=== PATIENT | female | born 1960 | race Caucasian/White ===

== ENCOUNTER → 2016-05-20 | Outpatient (CLI) | payer MEDICARE, MEDICAID ==
[~2016-05-20] MED LIST: ALTACE 2.5MG T2.5 MG PO; ANTIVERT 25MG25 MG PO; CEPHALEXIN500 M1 PO; CLEOCIN HC150 MG/CAP PO; CLEOCIN HCL300 MG PO; COREG12.5 MG PO; COUMADIN 5MG5 MG/TAB PO; DILAUDID 2MG TAB2 MG PO; DOXYCYCLINE 10100 MG PO; EFFEXOR 75M75 MG/TAB PO; GUAIFENESIN W PO; HCTZ 25MG TAB25 MG PO; LOFIBRA54 MG PO; LOPRESSOR 225 MG/TAB PO; NITROSTAT0.4 MG/TAB SL; PREDNISONE20 MG PO; PRIL40 PO; PROAIR HFA0.09 MG/AC IH; ROBITUSSIN DM 105 ML PO; ROBITUSSIN100 MG/5 M PO; TOPROL XL 50MG50 MG PO; ULTRAM 50MG TAB50 MG PO; VITAMIN D31000 I1 PO; VITAMIN D31000 IU PO; ZITHROMAX Z PA250 MG PO; ZOFRAN ODT4 MG PO
[2016-05-20 14:58] LABS: INR 1.6 (0.8-3.0); PROTHROMBIN TIME 18.4 SECONDS (9.7-12.8)
== END ==
LOC: COL.LAB 13:58
PROVIDERS: Dietitian, Registered
DX: Z86.718 Personal history of other venous thrombosis and embolism (principal)

== ENCOUNTER → 2016-06-04 | Outpatient (CLI) | payer MEDICARE, MEDICAID ==
[2016-06-04 14:03] LABS: CALCIUM 9.6 mg/dL (8.4-10.2); CREATININE, serum 0.88 mg/dL (0.52-1.25); POTASSIUM 3.9 mmol/L (3.4-5.0)
== END ==
LOC: COL.LAB 13:16
PROVIDERS: Internal Medicine Interventional Cardiology
DX: I42.8 Other cardiomyopathies (principal)

== ENCOUNTER 2016-06-19 16:07 | Emergency (ER) | payer MEDICARE, MEDICAID ==
[~2016-06-19] VITALS: Ht 167.6 cm; Wt 74.1 kg
[~2016-06-19 16:07] MED LIST changes: -ANTIVERT 25MG25 MG PO; -NITROSTAT0.4 MG/TAB SL
[2016-06-19 16:16] VITALS: TEMP 98.2
[2016-06-19 18:50] LABS: BASO # 0.1 (0.0-0.2); BASO % 0.7 % (0.0-2.0); EOS # 0.3 (0.0-0.7); EOS % 3.5 % (0-4.0); GRAN # 4.8 (1.4-6.5); GRAN % 57.3 % (42.2-75.2); HEMATOCRIT 43.3 % (37.0-47.0); HEMOGLOBIN 13.7 g/dl (12.5-16.0); LYMPH # 2.7 (1.2-3.4); LYMPH % 31.4 % (20.0-51.0); MEAN CELL VOLUME 94 fl (80.0-100.0); MEAN CORPUSCULAR HEMOGLOBIN 30 pg (27.0-31.0); MEAN CORPUSCULAR HGB CONC 32 g/dl (33.0-37.0); MEAN PLATELET VOLUME 9.6 fl (7.4-10.4); MONO # 0.6 (0.1-0.6); MONO % 6.5 % (1.7-9.3); PLATELET COUNT 242 K/mm3 (130-400); REDCELL DISTRIBUTION WIDTH-CV 14.5 % (11.5-14.5); WHITE BLOOD COUNT 8.5 K/mm3 (4.8-10.8)
[2016-06-19 18:59] LABS: ADJUSTED CALCIUM 9.7 mg/dL (8.4-10.2); ALANINE AMINOTRANSFERASE 42 U/L (9-52); ALBUMIN 4.2 gm/dL (3.5-5.0); ALKALINE PHOSPHATASE 101 U/L (50-136); ANION GAP 11 mmol/L (7-16); BILIRUBIN,TOTAL 0.7 mg/dL (0.0-1.0); BLOOD UREA NITROGEN 14 mg/dL (7-17); C-REACTIVE PROTEIN 0.7 mg/dL (0.0-0.9); CALCIUM 9.9 mg/dL (8.4-10.2); CARBON DIOXIDE 27 mmol/L (22-30); CHLORIDE 105 mmol/L (98-107); CREATININE, serum 0.86 mg/dL (0.52-1.25); GLUCOSE 106 mg/dL (74-106); POTASSIUM 3.7 mmol/L (3.4-5.0); SODIUM 143 mmol/L (137-145); TOTAL PROTEIN 7.8 gm/dL (6.4-8.2)
[2016-06-19 19:01] LABS: INR 2.3 (0.8-3.0); PROTHROMBIN TIME 25.9 SECONDS (9.7-12.8)
[2016-06-19 19:12] LABS: TROPONIN-I < 0.012 ng/mL (0.000-0.034)
[2016-06-19 19:31] LABS: PH 5 (5-8); URINE APPEARANCE Hazy; URINE BACTERIA None Seen /hpf; URINE BILIRUBIN Negative (NEGATIVE); URINE BLOOD Negative (NEGATIVE); URINE COLOR Yellow; URINE GLUCOSE Negative (NEGATIVE); URINE KETONE Negative (NEGATIVE); URINE UROBILINOGEN Negative (NEGATIVE)
[2016-06-19 19:37] LABS: INFLUENZA B NEGATIVE
[2016-06-19] MEDS ORDERED: ZITHROMAX Z PA250 MG PO (19:56)
[2016-06-19] MEDS ORDERED: PROAIR HFA0.09 MG/AC IH (19:56)
[2016-06-19 20:08] VITALS: BP 135/90; PULSE 93
== END 2016-06-19 20:10 | disposition home or self-care (01) ==
LOC: COL.ER 16:07
PROVIDERS: Physician Assistant
DX: J20.9 Acute bronchitis, unspecified (principal); R53.81 Other malaise; I25.2 Old myocardial infarction; Z79.01 Long term (current) use of anticoagulants; Z86.718 Personal history of other venous thrombosis and embolism; Z51.81 Encounter for therapeutic drug level monitoring
CPT/HCPCS: J7030

== ENCOUNTER → 2016-06-19 | Outpatient (CLI) | payer MEDICARE, MEDICAID ==
[2016-06-19 17:03] LABS: CALCIUM 9.9 mg/dL (8.4-10.2); CREATININE, serum 0.85 mg/dL (0.52-1.25); POTASSIUM 3.6 mmol/L (3.4-5.0)
== END ==
LOC: COL.LAB 14:56
PROVIDERS: Dietitian, Registered
DX: I42.8 Other cardiomyopathies (principal)

== ENCOUNTER → 2016-10-27 | Outpatient (CLI) | payer MEDICARE, MEDICAID ==
[~2016-10-27] MED LIST changes: +ANTIVERT 25MG25 MG PO; +NITROSTAT0.4 MG/TAB SL
[2016-10-27 12:17] LABS: PROTHROMBIN TIME 33.8 SECONDS (9.7-12.8)
== END ==
LOC: COL.LAB 10:57
PROVIDERS: Dietitian, Registered
DX: I82.409 Acute embolism and thrombosis of unspecified deep veins of unspecified lower extremity (principal)

== ENCOUNTER → 2016-12-23 | Outpatient (CLI) | payer MEDICARE, MEDICAID ==
[2016-12-23 13:33] LABS: INR 3.3 (0.8-3.0); PROTHROMBIN TIME 38.7 SECONDS (9.7-12.8)
== END ==
LOC: COL.LAB 12:35
PROVIDERS: Dietitian, Registered
DX: I82.409 Acute embolism and thrombosis of unspecified deep veins of unspecified lower extremity (principal)

== ENCOUNTER 2017-01-08 12:12 | Day surgery (SDC) | payer MEDICARE, MEDICAID ==
[~2017-01-08] VITALS: Ht 167.7 cm; Wt 78.6 kg
[2017-01-08] VITALS (9 sets, daily range): BP systolic 116–135; BP diastolic 70–97; PULSE 70–92; TEMP 98.1–99.1
[~2017-01-08 12:12] MED LIST changes: -ANTIVERT 25MG25 MG PO; -NITROSTAT0.4 MG/TAB SL
[2017-01-08] MEDS ORDERED: ANTIVERT 25MG25 MG PO (12:57)
[2017-01-08] MEDS ORDERED: NITROSTAT0.4 MG/TAB SL (12:58)
[2017-01-08 13:17] LABS: HEMATOCRIT 46.5 % (37.0-47.0); HEMOGLOBIN 15.3 g/dl (12.5-16.0); MEAN CELL VOLUME 90 fl (80.0-100.0); MEAN CORPUSCULAR HEMOGLOBIN 30 pg (27.0-31.0); MEAN CORPUSCULAR HGB CONC 33 g/dl (33.0-37.0); MEAN PLATELET VOLUME 9.4 fl (7.4-10.4); PLATELET COUNT 253 K/mm3 (130-400); RED BLOOD COUNT 5.18 M/mm3 (4.10-5.30); WHITE BLOOD COUNT 15.2 K/mm3 (4.8-10.8)
[2017-01-08 13:21] LABS: INR 1.1 (0.8-3.0); PROTHROMBIN TIME 12.1 SECONDS (9.7-12.8)
[2017-01-08 13:31] LABS: CALCIUM 10.3 mg/dL (8.4-10.2); CREATININE, serum 0.76 mg/dL (0.52-1.25); POTASSIUM 4.1 mmol/L (3.4-5.0)
== END 2017-01-08 18:11 | disposition home or self-care (01) ==
LOC: COL.CAR 12:12
PROVIDERS: Internal Medicine Interventional Cardiology
DX: R07.89 Other chest pain (principal); I25.10 Atherosclerotic heart disease of native coronary artery without angina pectoris; I50.20 Unspecified systolic (congestive) heart failure; I83.813 Varicose veins of bilateral lower extremities with pain; I83.93 Asymptomatic varicose veins of bilateral lower extremities; Z95.810 Presence of automatic (implantable) cardiac defibrillator; I25.2 Old myocardial infarction; Z87.891 Personal history of nicotine dependence; Z95.0 Presence of cardiac pacemaker
CPT/HCPCS: C1760; C1894; J1200; J2250; J3010; J7512; Q9967

== ENCOUNTER 2017-01-09 01:14 | Emergency (ER) | payer MEDICARE, MEDICAID ==
[~2017-01-09] VITALS: Ht 167.6 cm; Wt 81.8 kg
[2017-01-09 01:17] VITALS: TEMP 98.2
[2017-01-09 03:10] VITALS: BP 100/68; PULSE 71
== END 2017-01-09 03:13 | disposition home or self-care (01) ==
LOC: COL.ER 01:14
DX: T82.848A Pain due to vascular prosthetic devices, implants and grafts, initial encounter (principal); Z86.718 Personal history of other venous thrombosis and embolism; Z79.01 Long term (current) use of anticoagulants
CPT/HCPCS: J1170

== ENCOUNTER → 2017-01-09 | Outpatient (CLI) | payer MEDICARE, MEDICAID ==
[~2017-01-09] MED LIST changes: +ANTIVERT 25MG25 MG PO; +NITROSTAT0.4 MG/TAB SL
== END ==
LOC: COL.RAD 09:49
DX: R10.31 Right lower quadrant pain (principal); Z95.828 Presence of other vascular implants and grafts

== ENCOUNTER → 2017-01-28 | Outpatient (CLI) | payer MEDICARE, MEDICAID ==
[2017-01-28 13:33] LABS: INR 2.7 (0.8-3.0); PROTHROMBIN TIME 30.6 SECONDS (9.7-12.8)
== END ==
LOC: COL.LAB 12:22
PROVIDERS: Dietitian, Registered
DX: I82.409 Acute embolism and thrombosis of unspecified deep veins of unspecified lower extremity (principal)

== ENCOUNTER → 2017-03-26 | Outpatient (CLI) | payer MEDICARE, MEDICAID ==
[2017-03-26 15:06] LABS: PROTHROMBIN TIME 34.2 SECONDS (9.7-12.8)
== END ==
LOC: COL.LAB 13:52
PROVIDERS: Dietitian, Registered
DX: Z79.01 Long term (current) use of anticoagulants (principal); Z86.718 Personal history of other venous thrombosis and embolism

== ENCOUNTER → 2017-04-26 | Outpatient (CLI) | payer MEDICARE, MEDICAID ==
[2017-04-26 15:20] LABS: INR 3.1 (0.8-3.0); PROTHROMBIN TIME 36.9 SECONDS (9.7-12.8)
== END ==
LOC: COL.LAB 14:41
PROVIDERS: Dietitian, Registered
DX: Z79.01 Long term (current) use of anticoagulants (principal); Z86.718 Personal history of other venous thrombosis and embolism

== ENCOUNTER 2017-05-20 18:00 | Emergency (ER) | payer MEDICARE, MEDICAID ==
[~2017-05-20] VITALS: Ht 167.6 cm; Wt 77.3 kg
[2017-05-20 18:03] VITALS: BP 118/88; TEMP 99.2
[2017-05-20 19:22] LABS: INFLUENZA A NEGATIVE; INFLUENZA B NEGATIVE
[2017-05-20] MEDS ORDERED: PREDNISONE20 MG PO (19:34)
[2017-05-20 19:45] VITALS: PULSE 92
== END 2017-05-20 19:46 | disposition home or self-care (01) ==
LOC: COL.ER 18:00
PROVIDERS: Nurse Practitioner
DX: J20.9 Acute bronchitis, unspecified (principal); I10 Essential (primary) hypertension; I25.2 Old myocardial infarction; Z87.891 Personal history of nicotine dependence; Z95.0 Presence of cardiac pacemaker; Z79.01 Long term (current) use of anticoagulants
CPT/HCPCS: J7512

== ENCOUNTER 2017-05-30 12:21 | Inpatient (IN) | payer MEDICARE, MEDICAID ==
[~2017-05-30] VITALS: Ht 167.6 cm; Wt 83.4 kg
[2017-05-30 13:03] LABS: BASO # 0.1 (0.0-0.2); BASO % 0.5 % (0.0-2.0); EOS # 0.3 (0.0-0.7); EOS % 2.2 % (0-4.0); GRAN # 9.2 (1.4-6.5); HEMATOCRIT 42.5 % (37.0-47.0); HEMOGLOBIN 14.1 g/dl (12.5-16.0); LYMPH % 8.7 % (20.0-51.0); MEAN CELL VOLUME 91 fl (80.0-100.0); MEAN CORPUSCULAR HEMOGLOBIN 30 pg (27.0-31.0); MEAN CORPUSCULAR HGB CONC 33 g/dl (33.0-37.0); MEAN PLATELET VOLUME 9.9 fl (7.4-10.4); MONO % 8.7 % (1.7-9.3); PLATELET COUNT 206 K/mm3 (130-400); RED BLOOD COUNT 4.67 M/mm3 (4.10-5.30); REDCELL DISTRIBUTION WIDTH-CV 14.6 % (11.5-14.5)
[2017-05-30 13:09] LABS: PROTHROMBIN TIME 35.7 SECONDS (9.7-12.8)
[2017-05-30 13:11] LABS: PARTIAL THROMBOPLASTIN TIME 40.8 SECONDS (26.0-37.0)
[2017-05-30 13:49] LABS: ALANINE AMINOTRANSFERASE 40 U/L (9-52); ALBUMIN 3.6 gm/dL (3.5-5.0); ALKALINE PHOSPHATASE 83 U/L (50-136); ANION GAP 10 mmol/L (7-16); AST,SGOT 45 U/L (15-37); BILIRUBIN,TOTAL 0.5 mg/dL (0.0-1.0); BLOOD UREA NITROGEN 12 mg/dL (7-17); CALCIUM 8.5 mg/dL (8.4-10.2); CARBON DIOXIDE 23 mmol/L (22-30); CHLORIDE 103 mmol/L (98-107); CREATININE, serum 0.81 mg/dL (0.52-1.25); GLUCOSE 111 mg/dL (74-106); POTASSIUM 3.6 mmol/L (3.4-5.0); SODIUM 136 mmol/L (137-145); TOTAL PROTEIN 6.5 gm/dL (6.4-8.2)
[2017-05-30 14:01] LABS: TROPONIN-I < 0.012 ng/mL (0.000-0.034)
[2017-05-30] MEDS ORDERED: ALTACE 2.5MG T2.5 MG PO (15:42)
[2017-05-30] MEDS ORDERED: COREG 6.256.25 MG/TA PO (15:42)
[2017-05-30] MEDS ORDERED: HCTZ 25MG TAB25 MG PO (15:43)
[2017-05-30] MEDS ORDERED: LOFIBRA54 MG PO (15:43)
[2017-05-30] MEDS ORDERED: PRIL40 PO (15:43)
[2017-05-30] MEDS ORDERED: EFFEXOR 75M75 MG/TAB PO (15:44)
[2017-05-30] MEDS ORDERED: COUMADIN 5MG5 MG/TAB PO (15:44)
[2017-05-30] MEDS ORDERED: PROAIR HFA0.09 MG/AC IH (15:46)
[2017-05-30] MEDS ORDERED: NITROSTAT0.4 MG/TAB SL (15:46)
[2017-05-30 16:43] LABS: COLLECTION METHOD CLEAN CATCH
[2017-05-30 16:49] LABS: PH 7 (5-8); SQUAMOUS EPITHELIAL None Seen /hpf; URINE APPEARANCE Clear; URINE BACTERIA None Seen /hpf; URINE BILIRUBIN Negative (NEGATIVE); URINE BLOOD Negative (NEGATIVE); URINE COLOR Yellow; URINE GLUCOSE Negative (NEGATIVE); URINE KETONE Negative (NEGATIVE); URINE LEUKOCYTE ESTERASE Trace (NEGATIVE); URINE NITRATE Negative (NEGATIVE); URINE PROTEIN(semi-quant) Negative (NEGATIVE); URINE RBC 0-2 /hpf; URINE UROBILINOGEN Negative (NEGATIVE)
[2017-05-30 17:30] VITALS: BP 111/61; PULSE 117; TEMP 101.7
[2017-05-30 17:33] VITALS: BP 111/61; PULSE 117; TEMP 101.7
[2017-05-30 19:45] VITALS: BP 107/52; PULSE 124; TEMP 102
[2017-05-31] VITALS (7 sets, daily range): BP systolic 111–128; BP diastolic 52–71; PULSE 95–119; TEMP 98.7–102.5
[2017-05-31 06:44] LABS: BASO % 0.3 % (0.0-2.0); GRAN # 7.7 (1.4-6.5); GRAN % 75.7 % (42.2-75.2); HEMATOCRIT 37.6 % (37.0-47.0); HEMOGLOBIN 12.3 g/dl (12.5-16.0); LYMPH # 1.3 (1.2-3.4); LYMPH % 12.5 % (20.0-51.0); MEAN CELL VOLUME 91 fl (80.0-100.0); MEAN CORPUSCULAR HEMOGLOBIN 30 pg (27.0-31.0); MEAN CORPUSCULAR HGB CONC 33 g/dl (33.0-37.0); MEAN PLATELET VOLUME 9.6 fl (7.4-10.4); MONO # 1.1 (0.1-0.6); PLATELET COUNT 157 K/mm3 (130-400); RED BLOOD COUNT 4.13 M/mm3 (4.10-5.30); REDCELL DISTRIBUTION WIDTH-CV 14.9 % (11.5-14.5)
[2017-05-31 06:55] LABS: ALBUMIN 3.3 gm/dL (3.5-5.0); BILIRUBIN,TOTAL 0.8 mg/dL (0.0-1.0); CALCIUM 8.1 mg/dL (8.4-10.2); CREATININE, serum 0.76 mg/dL (0.52-1.25); POTASSIUM 3.1 mmol/L (3.4-5.0); TOTAL PROTEIN 6.3 gm/dL (6.4-8.2)
[2017-05-31 08:44] LABS: INR 1.5 (0.8-3.0)
[2017-05-31 09:54] LABS: CHOLESTEROL RISK RATIO 4.6
[2017-06-01 00:22] LABS: MEAN CELL VOLUME 93 fl (80.0-100.0); MEAN CORPUSCULAR HGB CONC 32 g/dl (33.0-37.0); MEAN PLATELET VOLUME 9.4 fl (7.4-10.4); PLATELET COUNT 148 K/mm3 (130-400); RED BLOOD COUNT 3.84 M/mm3 (4.10-5.30); REDCELL DISTRIBUTION WIDTH-CV 15.1 % (11.5-14.5)
[2017-06-01 00:23] LABS: HEMATOCRIT 35.8 % (37.0-47.0); HEMOGLOBIN 11.5 g/dl (12.5-16.0); MEAN CORPUSCULAR HEMOGLOBIN 30 pg (27.0-31.0)
[2017-06-01 03:38] VITALS: BP 125/63; PULSE 112; TEMP 100.9
[2017-06-01 06:49] LABS: BASO % 0.3 % (0.0-2.0); EOS % 0.3 % (0-4.0); GRAN # 4.4 (1.4-6.5); GRAN % 67.3 % (42.2-75.2); LYMPH # 1.4 (1.2-3.4); LYMPH % 22.2 % (20.0-51.0); MEAN CELL VOLUME 92 fl (80.0-100.0); MEAN CORPUSCULAR HGB CONC 32 g/dl (33.0-37.0); MEAN PLATELET VOLUME 9.8 fl (7.4-10.4); MONO # 0.6 (0.1-0.6); MONO % 9.4 % (1.7-9.3); PLATELET COUNT 131 K/mm3 (130-400); RED BLOOD COUNT 3.71 M/mm3 (4.10-5.30)
[2017-06-01 06:50] LABS: HEMATOCRIT 34.1 % (37.0-47.0); MEAN CORPUSCULAR HEMOGLOBIN 30 pg (27.0-31.0)
[2017-06-01 07:02] LABS: INR 1.4 (0.8-3.0); PROTHROMBIN TIME 15.9 SECONDS (9.7-12.8)
[2017-06-01 07:04] LABS: BILIRUBIN,TOTAL 0.4 mg/dL (0.0-1.0); CALCIUM 8.2 mg/dL (8.4-10.2); CREATININE, serum 0.71 mg/dL (0.52-1.25); POTASSIUM 3.3 mmol/L (3.4-5.0); TOTAL PROTEIN 5.9 gm/dL (6.4-8.2)
[2017-06-01 07:34] VITALS: BP 124/68; PULSE 102; TEMP 98.9
[2017-06-01 08:05] LABS: MEAN CELL VOLUME 92 fl (80.0-100.0); MEAN CORPUSCULAR HGB CONC 32 g/dl (33.0-37.0); MEAN PLATELET VOLUME 9.4 fl (7.4-10.4); PLATELET COUNT 128 K/mm3 (130-400); RED BLOOD COUNT 3.79 M/mm3 (4.10-5.30); REDCELL DISTRIBUTION WIDTH-CV 15.1 % (11.5-14.5)
[2017-06-01 08:07] LABS: HEMATOCRIT 34.9 % (37.0-47.0); HEMOGLOBIN 11.1 g/dl (12.5-16.0); MEAN CORPUSCULAR HEMOGLOBIN 29 pg (27.0-31.0)
[2017-06-01 11:11] VITALS: BP 117/64; PULSE 95; TEMP 98.2
[2017-06-01 16:07] LABS: MEAN CELL VOLUME 91 fl (80.0-100.0); MEAN CORPUSCULAR HGB CONC 33 g/dl (33.0-37.0); MEAN PLATELET VOLUME 9.6 fl (7.4-10.4); PLATELET COUNT 130 K/mm3 (130-400); RED BLOOD COUNT 3.87 M/mm3 (4.10-5.30)
[2017-06-01 16:09] LABS: HEMATOCRIT 35.2 % (37.0-47.0); HEMOGLOBIN 11.6 g/dl (12.5-16.0); MEAN CORPUSCULAR HEMOGLOBIN 30 pg (27.0-31.0)
[2017-06-01 16:27] VITALS: BP 123/74; PULSE 100; TEMP 98.6
[2017-06-01 20:10] VITALS: BP 131/70; PULSE 100; TEMP 99
[2017-06-02] VITALS: BP 138/73; PULSE 96; TEMP 98.6
[2017-06-02 00:25] LABS: MEAN CELL VOLUME 93 fl (80.0-100.0); MEAN CORPUSCULAR HGB CONC 32 g/dl (33.0-37.0); MEAN PLATELET VOLUME 9.8 fl (7.4-10.4); PLATELET COUNT 133 K/mm3 (130-400); RED BLOOD COUNT 3.76 M/mm3 (4.10-5.30)
[2017-06-02 00:26] LABS: HEMOGLOBIN 11.3 g/dl (12.5-16.0); MEAN CORPUSCULAR HEMOGLOBIN 30 pg (27.0-31.0)
[2017-06-02 03:07] VITALS: BP 122/70; PULSE 88; TEMP 98.4
[2017-06-02 06:43] LABS: BASO % 0.2 % (0.0-2.0); EOS # 0.1 (0.0-0.7); EOS % 1.8 % (0-4.0); GRAN # 3.4 (1.4-6.5); GRAN % 62.6 % (42.2-75.2); LYMPH # 1.5 (1.2-3.4); LYMPH % 27.7 % (20.0-51.0); MEAN CELL VOLUME 93 fl (80.0-100.0); MEAN CORPUSCULAR HGB CONC 32 g/dl (33.0-37.0); MEAN PLATELET VOLUME 9.8 fl (7.4-10.4); MONO # 0.4 (0.1-0.6); MONO % 7.3 % (1.7-9.3); PLATELET COUNT 134 K/mm3 (130-400); RED BLOOD COUNT 3.76 M/mm3 (4.10-5.30); REDCELL DISTRIBUTION WIDTH-CV 15.1 % (11.5-14.5)
[2017-06-02 06:52] LABS: CALCIUM 8.5 mg/dL (8.4-10.2); CREATININE, serum 0.62 mg/dL (0.52-1.25); POTASSIUM 3.5 mmol/L (3.4-5.0)
[2017-06-02 06:58] LABS: HEMATOCRIT 34.9 % (37.0-47.0); HEMOGLOBIN 11.2 g/dl (12.5-16.0); MEAN CORPUSCULAR HEMOGLOBIN 30 pg (27.0-31.0)
[2017-06-02 07:29] VITALS: BP 120/66; PULSE 89; TEMP 98.4
[2017-06-02 14:37] LABS: INR 1.1 (0.8-3.0); PROTHROMBIN TIME 12.7 SECONDS (9.7-12.8)
== END 2017-06-02 14:20 | disposition home or self-care (01) | DRG 872 ==
LOC: COL.ER 12:21 → MEDICAL 15:56
PROVIDERS: Emergency Medicine; Family Medicine; Internal Medicine; Nurse Practitioner Family; Surgery
DX: A41.9 Sepsis, unspecified organism (principal); K56.600 Partial intestinal obstruction, unspecified as to cause; K92.1 Melena; J10.1 Influenza due to other identified influenza virus with other respiratory manifestations; I10 Essential (primary) hypertension; I25.10 Atherosclerotic heart disease of native coronary artery without angina pectoris; Z95.810 Presence of automatic (implantable) cardiac defibrillator; Z86.718 Personal history of other venous thrombosis and embolism; Z79.01 Long term (current) use of anticoagulants; Z95.5 Presence of coronary angioplasty implant and graft
CPT/HCPCS: 99223-AI; 99232-AI; 99233-AI; 99239; J1956; J3430; J3475; J3480; J7030; J7060; Q9967

== ENCOUNTER → 2017-06-14 | Outpatient (CLI) | payer MEDICARE, MEDICAID ==
[~2017-06-14] MED LIST changes: +COREG 6.256.25 MG/TA PO
[2017-06-14 13:27] LABS: INR 1.5 (0.8-3.0); PROTHROMBIN TIME 17.9 SECONDS (9.7-12.8)
== END ==
LOC: COL.LAB 12:17
PROVIDERS: Surgery
DX: Z79.01 Long term (current) use of anticoagulants (principal)

== ENCOUNTER 2017-06-23 15:28 | Inpatient (IN) | payer MEDICARE, MEDICAID ==
[~2017-06-23] VITALS: Ht 167.6 cm; Wt 79.8 kg
[2017-06-30] VITALS (12 sets, daily range): BP systolic 104–136; BP diastolic 60–82; PULSE 68–101; TEMP 98.5–99.6
[2017-06-30 06:12] LABS: BASO # 0.1 (0.0-0.2); EOS # 0.3 (0.0-0.7); EOS % 3.4 % (0-4.0); GRAN # 5.2 (1.4-6.5); GRAN % 59.1 % (42.2-75.2); HEMATOCRIT 43.9 % (37.0-47.0); HEMOGLOBIN 14.6 g/dl (12.5-16.0); LYMPH # 2.5 (1.2-3.4); LYMPH % 28.6 % (20.0-51.0); MEAN CELL VOLUME 89 fl (80.0-100.0); MEAN CORPUSCULAR HEMOGLOBIN 30 pg (27.0-31.0); MEAN CORPUSCULAR HGB CONC 33 g/dl (33.0-37.0); MEAN PLATELET VOLUME 9.4 fl (7.4-10.4); MONO # 0.7 (0.1-0.6); MONO % 7.3 % (1.7-9.3); PLATELET COUNT 221 K/mm3 (130-400); RED BLOOD COUNT 4.93 M/mm3 (4.10-5.30); REDCELL DISTRIBUTION WIDTH-CV 14.2 % (11.5-14.5)
[2017-06-30 06:17] LABS: INR 1.2 (0.8-3.0); PROTHROMBIN TIME 13.9 SECONDS (9.7-12.8)
[2017-06-30 06:24] LABS: CALCIUM 9.7 mg/dL (8.4-10.2); CREATININE, serum 0.84 mg/dL (0.52-1.25); POTASSIUM 3.2 mmol/L (3.4-5.0)
[2017-06-30] MEDS ORDERED: ANTIVERT PO (06:52)
[2017-06-30] MEDS ORDERED: BONINE25 MG PO (11:56)
[2017-07-01 01:38] VITALS: BP 115/58; PULSE 64; TEMP 99.4
[2017-07-01 05:00] VITALS: BP 113/54; PULSE 89; TEMP 99.4
[2017-07-01 07:18] LABS: CALCIUM 8.5 mg/dL (8.4-10.2); CREATININE, serum 0.7 mg/dL (0.52-1.25); POTASSIUM 3.3 mmol/L (3.4-5.0)
[2017-07-01 07:24] LABS: HEMATOCRIT 36.9 % (37.0-47.0); HEMOGLOBIN 11.8 g/dl (12.5-16.0)
[2017-07-01 09:00] VITALS: BP 116/62; PULSE 88; TEMP 98.2
[2017-07-01 13:08] VITALS: BP 100/55; PULSE 85; TEMP 98.5
[2017-07-01 17:27] VITALS: BP 107/58; PULSE 93; TEMP 99.4
[2017-07-01 20:17] VITALS: BP 113/81; PULSE 112; TEMP 98.9
[2017-07-02 00:32] VITALS: BP 116/61; PULSE 111; TEMP 98.2
[2017-07-02 05:09] VITALS: BP 108/57; PULSE 99; TEMP 99.2
[2017-07-02 09:28] VITALS: BP 116/54; PULSE 105; TEMP 99.8
[2017-07-02 13:40] VITALS: BP 104/60; PULSE 106; TEMP 98.9
[2017-07-02 17:18] VITALS: BP 106/59; PULSE 104; TEMP 100.3
[2017-07-02 21:28] VITALS: BP 113/74; PULSE 105; TEMP 100.2
[2017-07-03 01:37] VITALS: BP 97/66; PULSE 95; TEMP 101.1
[2017-07-03 05:17] VITALS: BP 118/64; PULSE 90; TEMP 98.2
[2017-07-03 09:52] VITALS: BP 102/63; PULSE 81; TEMP 98.4
[2017-07-03 12:23] LABS: BASO % 0.3 % (0.0-2.0); EOS # 0.3 (0.0-0.7); EOS % 2.9 % (0-4.0); GRAN # 7.9 (1.4-6.5); GRAN % 80.9 % (42.2-75.2); HEMATOCRIT 37.1 % (37.0-47.0); LYMPH % 10.3 % (20.0-51.0); MEAN CELL VOLUME 93 fl (80.0-100.0); MEAN CORPUSCULAR HEMOGLOBIN 29 pg (27.0-31.0); MEAN CORPUSCULAR HGB CONC 32 g/dl (33.0-37.0); MEAN PLATELET VOLUME 9.5 fl (7.4-10.4); MONO # 0.5 (0.1-0.6); PLATELET COUNT 178 K/mm3 (130-400); RED BLOOD COUNT 3.98 M/mm3 (4.10-5.30); REDCELL DISTRIBUTION WIDTH-CV 14.4 % (11.5-14.5)
[2017-07-03 12:35] LABS: HEMOGLOBIN 11.7 g/dl (12.5-16.0)
[2017-07-03 12:44] LABS: BILIRUBIN,TOTAL 1.1 mg/dL (0.0-1.0); CALCIUM 8.5 mg/dL (8.4-10.2); CREATININE, serum 0.7 mg/dL (0.52-1.25); POTASSIUM 3.5 mmol/L (3.4-5.0)
[2017-07-03 14:24] VITALS: BP 100/59; PULSE 82; TEMP 98.1
[2017-07-03 17:31] VITALS: BP 107/67; PULSE 80; TEMP 98.2
[2017-07-03 20:59] VITALS: BP 96/47; PULSE 78; TEMP 98.7
[2017-07-04 00:36] VITALS: BP 109/61; PULSE 80; TEMP 98.3
[2017-07-04 05:16] VITALS: BP 103/57; PULSE 78; TEMP 98
[2017-07-04 07:44] LABS: BASO % 0.3 % (0.0-2.0); EOS # 0.5 (0.0-0.7); EOS % 6.6 % (0-4.0); GRAN % 64.3 % (42.2-75.2); LYMPH # 1.7 (1.2-3.4); LYMPH % 21.4 % (20.0-51.0); MEAN CELL VOLUME 92 fl (80.0-100.0); MEAN CORPUSCULAR HGB CONC 32 g/dl (33.0-37.0); MONO # 0.5 (0.1-0.6); MONO % 6.4 % (1.7-9.3); PLATELET COUNT 176 K/mm3 (130-400); RED BLOOD COUNT 3.57 M/mm3 (4.10-5.30)
[2017-07-04 07:48] LABS: HEMOGLOBIN 10.6 g/dl (12.5-16.0); MEAN CORPUSCULAR HEMOGLOBIN 30 pg (27.0-31.0)
[2017-07-04 08:09] LABS: ALBUMIN 2.7 gm/dL (3.5-5.0); BILIRUBIN,TOTAL 0.6 mg/dL (0.0-1.0); CALCIUM 8.1 mg/dL (8.4-10.2); CREATININE, serum 0.66 mg/dL (0.52-1.25); TOTAL PROTEIN 5.5 gm/dL (6.4-8.2)
[2017-07-04 08:14] LABS: POTASSIUM 2.7 mmol/L (3.4-5.0)
[2017-07-04 13:17] VITALS: BP 112/69; PULSE 76; TEMP 98.8
[2017-07-04 17:00] VITALS: BP 104/65; PULSE 74; TEMP 96.7
[2017-07-04 17:41] LABS: CALCIUM 8.2 mg/dL (8.4-10.2); CREATININE, serum 0.68 mg/dL (0.52-1.25); POTASSIUM 3.5 mmol/L (3.4-5.0)
[2017-07-04 23:13] VITALS: BP 109/63; PULSE 83; TEMP 98
[2017-07-05 05:42] VITALS: BP 121/68; PULSE 82; TEMP 98
[2017-07-05 07:45] LABS: MEAN CELL VOLUME 92 fl (80.0-100.0); MEAN CORPUSCULAR HGB CONC 32 g/dl (33.0-37.0); MEAN PLATELET VOLUME 10.3 fl (7.4-10.4); PLATELET COUNT 221 K/mm3 (130-400); RED BLOOD COUNT 3.93 M/mm3 (4.10-5.30); REDCELL DISTRIBUTION WIDTH-CV 14.2 % (11.5-14.5)
[2017-07-05 07:58] LABS: ALBUMIN 3.1 gm/dL (3.5-5.0); BILIRUBIN,TOTAL 0.5 mg/dL (0.0-1.0); CALCIUM 8.5 mg/dL (8.4-10.2); CREATININE, serum 0.69 mg/dL (0.52-1.25); POTASSIUM 3.3 mmol/L (3.4-5.0)
[2017-07-05 08:16] LABS: HEMATOCRIT 36.3 % (37.0-47.0); HEMOGLOBIN 11.7 g/dl (12.5-16.0); MEAN CORPUSCULAR HEMOGLOBIN 30 pg (27.0-31.0)
[2017-07-05 09:33] VITALS: PULSE 84; TEMP 98.7
[2017-07-05 09:43] LABS: BAND 4 % (0-10); EOSINOPHIL 2 % (0-4); LYMPHOCYTE 19 % (20.0-51.0); NEUTROPHILS 72 % (42.0-75.2)
[2017-07-05 09:44] LABS: PLATELET ESTIMATE NORMAL (NORMAL)
[2017-07-05 13:37] VITALS: BP 117/79; PULSE 91; TEMP 98.4
== END 2017-07-05 15:18 | disposition home or self-care (01) | DRG 330 ==
LOC: SURG 06-30 05:04 → INPTSU 06-30 05:04 → SURG 06-30 07:30
PROVIDERS: Registered Nurse; Surgery
PROC: 0DBA0ZZ Excision of Jejunum, Open Approach (ICD-10-PCS; principal; 2017-06-30 07:30)
PROC: 0DNU0ZZ Release Omentum, Open Approach (ICD-10-PCS; 2017-06-30 07:30)
DX: K59.8 Other specified functional intestinal disorders (principal); K56.7 Ileus, unspecified; I25.10 Atherosclerotic heart disease of native coronary artery without angina pectoris; Z95.5 Presence of coronary angioplasty implant and graft; Z95.0 Presence of cardiac pacemaker; Z87.891 Personal history of nicotine dependence; Z86.711 Personal history of pulmonary embolism; Z79.01 Long term (current) use of anticoagulants; K66.0 Peritoneal adhesions (postprocedural) (postinfection)
CPT/HCPCS: A4314; J0690; J1100; J1650; J1885; J2250; J2405; J2550; J2704; J2710; J3010; J3480; J7060; J7120

== ENCOUNTER → 2017-08-12 | Outpatient (CLI) | payer MEDICARE, MEDICAID ==
[~2017-08-12] MED LIST changes: +ANTIVERT PO; +BONINE25 MG PO
[2017-08-12 10:34] LABS: INR 2.2 (0.8-3.0); PROTHROMBIN TIME 25.5 SECONDS (9.7-12.8)
== END ==
LOC: COL.LAB 09:34
PROVIDERS: Family Medicine
DX: Z51.81 Encounter for therapeutic drug level monitoring (principal); Z86.718 Personal history of other venous thrombosis and embolism

== ENCOUNTER → 2017-09-23 | Outpatient (CLI) | payer MEDICARE, MEDICAID ==
[2017-09-23 12:02] LABS: INR 2.4 (0.8-3.0); PROTHROMBIN TIME 27.3 SECONDS (9.7-12.8)
== END ==
LOC: COL.LAB 11:18
PROVIDERS: Family Medicine
DX: Z79.01 Long term (current) use of anticoagulants (principal)

== ENCOUNTER → 2017-11-23 | Outpatient (CLI) | payer MEDICARE, MEDICAID ==
[2017-11-23 10:15] LABS: INR 2.5 (0.8-3.0); PROTHROMBIN TIME 28.1 SECONDS (9.7-12.8)
== END ==
LOC: COL.LAB 09:37
PROVIDERS: Family Medicine
DX: Z51.81 Encounter for therapeutic drug level monitoring (principal); Z86.718 Personal history of other venous thrombosis and embolism

== ENCOUNTER → 2017-12-31 | Outpatient (CLI) | payer MEDICARE, MEDICAID ==
[2017-12-31 15:09] LABS: INR 1.6 (0.8-3.0); PROTHROMBIN TIME 18.3 SECONDS (9.7-12.8)
== END ==
LOC: COL.LAB 14:33
PROVIDERS: Family Medicine
DX: Z51.81 Encounter for therapeutic drug level monitoring (principal); Z86.718 Personal history of other venous thrombosis and embolism

== ENCOUNTER → 2018-03-28 | Outpatient (CLI) | payer MEDICARE, MEDICAID ==
[2018-03-28 11:32] LABS: HEMATOCRIT 43.1 % (37.0-47.0); HEMOGLOBIN 13.8 g/dl (12.5-16.0); MEAN CELL VOLUME 91 fl (80.0-100.0); MEAN CORPUSCULAR HEMOGLOBIN 29 pg (27.0-31.0); MEAN CORPUSCULAR HGB CONC 32 g/dl (33.0-37.0); MEAN PLATELET VOLUME 9.5 fl (7.4-10.4); PLATELET COUNT 221 K/mm3 (130-400); RED BLOOD COUNT 4.75 M/mm3 (4.10-5.30); REDCELL DISTRIBUTION WIDTH-CV 15.1 % (11.5-14.5)
[2018-03-28 11:37] LABS: INR 1.1 (0.8-3.0); PROTHROMBIN TIME 12.9 SECONDS (9.7-12.8)
[2018-03-28 11:45] LABS: CALCIUM 9.3 mg/dL (8.4-10.2); CREATININE, serum 0.72 mg/dL (0.52-1.25); POTASSIUM 3.9 mmol/L (3.4-5.0)
== END ==
LOC: COL.LAB 10:24
PROVIDERS: Family Medicine
DX: I25.10 Atherosclerotic heart disease of native coronary artery without angina pectoris (principal); E78.5 Hyperlipidemia, unspecified; I11.0 Hypertensive heart disease with heart failure; I50.42 Chronic combined systolic (congestive) and diastolic (congestive) heart failure

== ENCOUNTER → 2018-06-28 | Outpatient (CLI) | payer MEDICARE, MEDICAID ==
[2018-06-28 10:53] LABS: HEMATOCRIT 41.2 % (37.0-47.0); HEMOGLOBIN 13.1 g/dl (12.5-16.0); MEAN CELL VOLUME 92 fl (80.0-100.0); MEAN CORPUSCULAR HEMOGLOBIN 29 pg (27.0-31.0); MEAN CORPUSCULAR HGB CONC 32 g/dl (33.0-37.0); MEAN PLATELET VOLUME 9.6 fl (7.4-10.4); PLATELET COUNT 196 K/mm3 (130-400); RED BLOOD COUNT 4.47 M/mm3 (4.10-5.30); REDCELL DISTRIBUTION WIDTH-CV 14.6 % (11.5-14.5)
[2018-06-28 10:58] LABS: INR 1.9 (0.8-3.0); PROTHROMBIN TIME 22.1 SECONDS (9.7-12.8)
[2018-06-28 11:05] LABS: ALBUMIN 4.1 gm/dL (3.5-5.0); BILIRUBIN,TOTAL 0.3 mg/dL (0.0-1.0); CALCIUM 9.1 mg/dL (8.4-10.2); CHOLESTEROL RISK RATIO 4.9; CREATININE, serum 0.7 mg/dL (0.52-1.25); POTASSIUM 3.8 mmol/L (3.4-5.0); TOTAL PROTEIN 7.3 gm/dL (6.4-8.2)
== END ==
LOC: COL.LAB 10:02
PROVIDERS: Family Medicine
DX: I50.42 Chronic combined systolic (congestive) and diastolic (congestive) heart failure (principal); Z79.01 Long term (current) use of anticoagulants

== ENCOUNTER → 2018-08-10 | Outpatient (CLI) | payer MEDICARE, MEDICAID ==
[2018-08-10 12:31] LABS: INR 3.1 (0.8-3.0); PROTHROMBIN TIME 35.8 SECONDS (9.7-12.8)
[2018-08-10 12:54] LABS: ALBUMIN 3.9 gm/dL (3.5-5.0); BILIRUBIN,TOTAL 0.4 mg/dL (0.0-1.0); CALCIUM 9.2 mg/dL (8.4-10.2); CHOLESTEROL RISK RATIO 5.2; CREATININE, serum 0.69 (0.52-1.25); POTASSIUM 3.8 mmol/L (3.4-5.0)
== END ==
LOC: COL.LAB 10:57
PROVIDERS: Family Medicine
DX: E78.5 Hyperlipidemia, unspecified (principal)

== ENCOUNTER 2018-08-19 13:38 | Emergency (ER) | payer MEDICARE, MEDICAID ==
[~2018-08-19] VITALS: Ht 167.6 cm; Wt 82.6 kg
[2018-08-19 13:42] VITALS: TEMP 98.1
[2018-08-19 15:07] LABS: BASO # 0.1 (0.0-0.2); BASO % 0.8 % (0.0-2.0); EOS # 0.3 (0.0-0.7); EOS % 5.1 % (0-4.0); GRAN # 3.7 (1.4-6.5); GRAN % 59.2 % (42.2-75.2); HEMATOCRIT 41.9 % (37.0-47.0); HEMOGLOBIN 13.3 g/dl (12.5-16.0); LYMPH # 1.8 (1.2-3.4); LYMPH % 28.7 % (20.0-51.0); MEAN CELL VOLUME 91 fl (80.0-100.0); MEAN CORPUSCULAR HEMOGLOBIN 29 pg (27.0-31.0); MEAN CORPUSCULAR HGB CONC 32 g/dl (33.0-37.0); MEAN PLATELET VOLUME 9.1 fl (7.4-10.4); MONO # 0.4 (0.1-0.6); MONO % 5.9 % (1.7-9.3); PLATELET COUNT 179 K/mm3 (130-400); RED BLOOD COUNT 4.62 M/mm3 (4.10-5.30); REDCELL DISTRIBUTION WIDTH-CV 14.7 % (11.5-14.5)
[2018-08-19 15:20] LABS: ALBUMIN 4.2 gm/dL (3.5-5.0); BILIRUBIN,TOTAL 0.5 mg/dL (0.0-1.0); CALCIUM 9.4 mg/dL (8.4-10.2); CREATININE, serum 0.7 (0.52-1.25); POTASSIUM 3.9 mmol/L (3.4-5.0); TOTAL PROTEIN 7.5 gm/dL (6.4-8.2)
[2018-08-19 15:39] LABS: C-REACTIVE PROTEIN 0.6 mg/dL (0.0-0.9)
[2018-08-19] MEDS ORDERED: NORCO 325 MG-51 TAB PO (15:49)
[2018-08-19 15:59] VITALS: BP 125/89; PULSE 70
== END 2018-08-19 16:00 | disposition home or self-care (01) ==
LOC: COL.ER 13:38
PROVIDERS: Physician Assistant
DX: M79.661 Pain in right lower leg (principal); E78.5 Hyperlipidemia, unspecified; I10 Essential (primary) hypertension; K21.9 Gastro-esophageal reflux disease without esophagitis; Z86.711 Personal history of pulmonary embolism; Z86.718 Personal history of other venous thrombosis and embolism; Z95.0 Presence of cardiac pacemaker; Z87.891 Personal history of nicotine dependence; Z79.01 Long term (current) use of anticoagulants

== ENCOUNTER → 2018-08-29 | Outpatient (CLI) | payer MEDICARE, MEDICAID ==
[~2018-08-29] MED LIST changes: +NORCO 325 MG-51 TAB PO
[2018-08-29 11:14] LABS: HEMATOCRIT 41.9 % (37.0-47.0); HEMOGLOBIN 13.5 g/dl (12.5-16.0); MEAN CELL VOLUME 90 fl (80.0-100.0); MEAN CORPUSCULAR HEMOGLOBIN 29 pg (27.0-31.0); MEAN CORPUSCULAR HGB CONC 32 g/dl (33.0-37.0); MEAN PLATELET VOLUME 9.5 fl (7.4-10.4); PLATELET COUNT 196 K/mm3 (130-400); RED BLOOD COUNT 4.64 M/mm3 (4.10-5.30)
[2018-08-29 11:21] LABS: ALBUMIN 4.3 gm/dL (3.5-5.0); BILIRUBIN,TOTAL 0.6 mg/dL (0.0-1.0); CALCIUM 9.4 mg/dL (8.4-10.2); CREATININE, serum 0.74 (0.52-1.25); TOTAL PROTEIN 7.5 gm/dL (6.4-8.2)
[2018-08-29 11:22] LABS: INR 1.5 (0.8-3.0)
== END ==
LOC: COL.LAB 10:52
PROVIDERS: Internal Medicine Interventional Cardiology
DX: M79.604 Pain in right leg (principal)

== ENCOUNTER → 2018-11-15 | Outpatient (CLI) | payer MEDICARE, MEDICAID ==
[2018-11-15 11:20] LABS: CHOLESTEROL RISK RATIO 3.8
[2018-11-15 11:21] LABS: INR 3.5 (0.8-3.0); PROTHROMBIN TIME 42.8 SECONDS (9.7-12.8)
== END ==
LOC: COL.LAB 10:27
PROVIDERS: Family Medicine
DX: E78.5 Hyperlipidemia, unspecified (principal)

== ENCOUNTER 2018-12-12 18:06 | Emergency (ER) | payer MEDICARE, MEDICAID ==
[~2018-12-12] VITALS: Ht 167.6 cm; Wt 79.5 kg
[2018-12-12 18:11] VITALS: BP 153/67; TEMP 97.6
[2018-12-12 18:54] VITALS: PULSE 80
== END 2018-12-12 18:56 | disposition home or self-care (01) ==
LOC: COL.ER 18:06
DX: M79.672 Pain in left foot (principal); I10 Essential (primary) hypertension; K21.9 Gastro-esophageal reflux disease without esophagitis; Z86.718 Personal history of other venous thrombosis and embolism; Z87.891 Personal history of nicotine dependence; Z79.01 Long term (current) use of anticoagulants; Z86.711 Personal history of pulmonary embolism

== ENCOUNTER 2019-01-25 16:49 | Emergency (ER) | payer MEDICARE, MEDICAID ==
[~2019-01-25] VITALS: Ht 167.6 cm; Wt 81.8 kg
[2019-01-25 16:56] VITALS: TEMP 98
[2019-01-25 17:36] LABS: BASO # 0.1 (0.0-0.2); BASO % 0.7 % (0.0-2.0); EOS # 0.2 (0.0-0.7); EOS % 2.3 % (0-4.0); GRAN # 4.8 (1.4-6.5); GRAN % 65.5 % (42.2-75.2); HEMATOCRIT 43.9 % (37.0-47.0); HEMOGLOBIN 13.8 g/dl (12.5-16.0); LYMPH # 1.8 (1.2-3.4); LYMPH % 24.7 % (20.0-51.0); MEAN CELL VOLUME 93 fl (80.0-100.0); MEAN CORPUSCULAR HEMOGLOBIN 29 pg (27.0-31.0); MEAN CORPUSCULAR HGB CONC 31 g/dl (33.0-37.0); MONO # 0.5 (0.1-0.6); MONO % 6.5 % (1.7-9.3); PLATELET COUNT 204 K/mm3 (130-400); RED BLOOD COUNT 4.73 M/mm3 (4.10-5.30); REDCELL DISTRIBUTION WIDTH-CV 14.6 % (11.5-14.5)
[2019-01-25 17:48] LABS: ALANINE AMINOTRANSFERASE 12 U/L (9-52); ALBUMIN 4.7 gm/dL (3.5-5.0); ALKALINE PHOSPHATASE 127 U/L (50-136); ANION GAP 12 mmol/L (7-16); AST,SGOT 40 U/L (15-37); BILIRUBIN,TOTAL 0.6 mg/dL (0.0-1.0); BLOOD UREA NITROGEN 15 mg/dL (7-17); C-REACTIVE PROTEIN < 0.5 mg/dL (0.0-0.9); CARBON DIOXIDE 25 mmol/L (22-30); CHLORIDE 108 mmol/L (98-107); CREATININE, serum 0.67 (0.52-1.25); GLUCOSE 124 mg/dL (74-106); LIPASE 79 U/L (23-300); POTASSIUM 3.8 mmol/L (3.4-5.0); SODIUM 145 mmol/L (137-145)
[2019-01-25 18:13] LABS: COLLECTION METHOD CLEAN CATCH
[2019-01-25 18:20] LABS: PH 8 (5-8); SQUAMOUS EPITHELIAL 0-2 /hpf; URINE APPEARANCE Clear; URINE BACTERIA None Seen /hpf; URINE BILIRUBIN Negative (NEGATIVE); URINE BLOOD Negative (NEGATIVE); URINE COLOR Yellow; URINE GLUCOSE Negative (NEGATIVE); URINE KETONE Negative (NEGATIVE); URINE LEUKOCYTE ESTERASE Negative (NEGATIVE); URINE NITRATE Negative (NEGATIVE); URINE PROTEIN(semi-quant) Negative (NEGATIVE); URINE RBC 0-2 /hpf; URINE UROBILINOGEN >=4.0 mg/dL (NEGATIVE)
[2019-01-25] MEDS ORDERED: ZOFRAN ODT4 MG PO (18:57)
[2019-01-25 19:11] VITALS: BP 119/71; PULSE 74
== END 2019-01-25 19:11 | disposition home or self-care (01) ==
LOC: COL.ER 16:49
PROVIDERS: Family Medicine
DX: R11.2 Nausea with vomiting, unspecified (principal); I25.10 Atherosclerotic heart disease of native coronary artery without angina pectoris; Z79.01 Long term (current) use of anticoagulants
CPT/HCPCS: J1170; J2405; J7030; Q9967

== ENCOUNTER → 2019-03-03 | Outpatient (CLI) | payer MEDICARE, MEDICAID ==
[2019-03-03 13:57] LABS: PROTHROMBIN TIME 24.4 SECONDS (9.7-12.8)
== END ==
LOC: COL.LAB 13:22
PROVIDERS: Family Medicine
DX: I82.409 Acute embolism and thrombosis of unspecified deep veins of unspecified lower extremity (principal)

== ENCOUNTER → 2019-04-13 | Outpatient (CLI) | payer MEDICARE, MEDICAID ==
[2019-04-13 13:10] LABS: INR 2.4 (0.8-3.0); PROTHROMBIN TIME 28.8 SECONDS (9.7-12.8)
== END ==
LOC: COL.LAB 12:28
PROVIDERS: Family Medicine
DX: I82.409 Acute embolism and thrombosis of unspecified deep veins of unspecified lower extremity (principal)

== ENCOUNTER 2019-05-20 18:37 | Emergency (ER) | payer MEDICARE, MEDICAID ==
[~2019-05-20] VITALS: Ht 167.6 cm; Wt 79.1 kg
[2019-05-20 18:50] VITALS: TEMP 99.3
[2019-05-20] MEDS ORDERED: LASIX 20MG TABL20 MG PO (19:13)
[2019-05-20] MEDS ORDERED: MULTI VITAMINS1 TAB PO (19:13)
[2019-05-20 19:35] LABS: BASO # 0.1 (0.0-0.2); BASO % 0.8 % (0.0-2.0); EOS # 0.3 (0.0-0.7); EOS % 3.7 % (0-4.0); GRAN # 4.5 (1.4-6.5); GRAN % 52.5 % (42.2-75.2); HEMOGLOBIN 12.7 g/dl (12.5-16.0); LYMPH % 35.4 % (20.0-51.0); MEAN CELL VOLUME 91 fl (80.0-100.0); MEAN CORPUSCULAR HEMOGLOBIN 29 pg (27.0-31.0); MEAN CORPUSCULAR HGB CONC 32 g/dl (33.0-37.0); MEAN PLATELET VOLUME 9.7 fl (7.4-10.4); MONO # 0.6 (0.1-0.6); MONO % 7.2 % (1.7-9.3); PLATELET COUNT 199 K/mm3 (130-400); RED BLOOD COUNT 4.38 M/mm3 (4.10-5.30); REDCELL DISTRIBUTION WIDTH-CV 15.1 % (11.5-14.5)
[2019-05-20 19:45] LABS: ALANINE AMINOTRANSFERASE 16 U/L (9-52); ALBUMIN 4.5 gm/dL (3.5-5.0); ALKALINE PHOSPHATASE 95 U/L (50-136); ANION GAP 10 mmol/L (7-16); AST,SGOT 23 U/L (15-37); BILIRUBIN,TOTAL 0.3 mg/dL (0.0-1.0); BLOOD UREA NITROGEN 13 mg/dL (7-17); CALCIUM 9.3 mg/dL (8.4-10.2); CARBON DIOXIDE 22 mmol/L (22-30); CHLORIDE 112 mmol/L (98-107); CREATININE, serum 0.84 (0.52-1.25); GLUCOSE 95 mg/dL (74-106); INR 1.8 (0.8-3.0); POTASSIUM 4.1 mmol/L (3.4-5.0); PROTHROMBIN TIME 20.9 SECONDS (9.7-12.8); SODIUM 143 mmol/L (137-145); TOTAL PROTEIN 7.7 gm/dL (6.4-8.2)
[2019-05-20 19:46] LABS: C-REACTIVE PROTEIN < 0.5 mg/dL (0.0-0.9)
[2019-05-20 20:19] LABS: COLLECTION METHOD CLEAN CATCH
[2019-05-20 20:25] LABS: MUCOUS Present /lpf; PH 5 (5-8); SQUAMOUS EPITHELIAL 0-2 /hpf; URINE APPEARANCE Clear; URINE BACTERIA None Seen /hpf; URINE BILIRUBIN Negative (NEGATIVE); URINE BLOOD 3+ (NEGATIVE); URINE COLOR Yellow; URINE GLUCOSE Negative (NEGATIVE); URINE KETONE Negative (NEGATIVE); URINE LEUKOCYTE ESTERASE Negative (NEGATIVE); URINE NITRATE Negative (NEGATIVE); URINE PROTEIN(semi-quant) Negative (NEGATIVE); URINE RBC 0-2 /hpf; URINE UROBILINOGEN Negative (NEGATIVE)
[2019-05-20 21:35] VITALS: BP 144/91; PULSE 88
== END 2019-05-20 21:35 | disposition home or self-care (01) ==
LOC: COL.ER 18:37
PROVIDERS: Emergency Medicine
DX: T45.515A Adverse effect of anticoagulants, initial encounter (principal); K92.2 Gastrointestinal hemorrhage, unspecified; I48.91 Unspecified atrial fibrillation; I25.10 Atherosclerotic heart disease of native coronary artery without angina pectoris; Z79.01 Long term (current) use of anticoagulants
CPT/HCPCS: J7030

== ENCOUNTER 2019-05-22 13:18 | Emergency (ER) | payer MEDICARE, MEDICAID ==
[~2019-05-22] VITALS: Ht 167.6 cm; Wt 79.1 kg
[~2019-05-22 13:18] MED LIST changes: +LASIX 20MG TABL20 MG PO; +MULTI VITAMINS1 TAB PO
[2019-05-22 13:34] VITALS: TEMP 98.1
[2019-05-22 15:32] LABS: BASO # 0.1 (0.0-0.2); BASO % 0.8 % (0.0-2.0); EOS # 0.2 (0.0-0.7); EOS % 3.1 % (0-4.0); GRAN # 4.3 (1.4-6.5); GRAN % 57.9 % (42.2-75.2); HEMOGLOBIN 13.2 g/dl (12.5-16.0); LYMPH # 2.3 (1.2-3.4); LYMPH % 30.4 % (20.0-51.0); MEAN CELL VOLUME 93 fl (80.0-100.0); MEAN CORPUSCULAR HEMOGLOBIN 29 pg (27.0-31.0); MEAN CORPUSCULAR HGB CONC 31 g/dl (33.0-37.0); MEAN PLATELET VOLUME 9.9 fl (7.4-10.4); MONO # 0.6 (0.1-0.6); MONO % 7.4 % (1.7-9.3); PLATELET COUNT 210 K/mm3 (130-400); RED BLOOD COUNT 4.61 M/mm3 (4.10-5.30); REDCELL DISTRIBUTION WIDTH-CV 15.4 % (11.5-14.5)
[2019-05-22 15:38] LABS: INR 1.1 (0.8-3.0); PROTHROMBIN TIME 12.3 SECONDS (9.7-12.8)
[2019-05-22] MEDS ORDERED: VITAMIN D31000 I1 PO (15:38)
[2019-05-22] MEDS ORDERED: MASON NATURAL1200 MG PO (15:38)
[2019-05-22 15:49] LABS: ALANINE AMINOTRANSFERASE 16 U/L (9-52); ALBUMIN 4.9 gm/dL (3.5-5.0); ALKALINE PHOSPHATASE 104 U/L (50-136); ANION GAP 10 mmol/L (7-16); AST,SGOT 34 U/L (15-37); BILIRUBIN,TOTAL 0.5 mg/dL (0.0-1.0); BLOOD UREA NITROGEN 17 mg/dL (7-17); CALCIUM 9.8 mg/dL (8.4-10.2); CARBON DIOXIDE 27 mmol/L (22-30); CHLORIDE 108 mmol/L (98-107); GLUCOSE 90 mg/dL (74-106); POTASSIUM 4.1 mmol/L (3.4-5.0); SODIUM 145 mmol/L (137-145); TOTAL PROTEIN 8.5 gm/dL (6.4-8.2)
[2019-05-22 15:56] LABS: C-REACTIVE PROTEIN < 0.5 mg/dL (0.0-0.9)
[2019-05-22 16:45] VITALS: BP 118/74; PULSE 83
== END 2019-05-22 17:38 | disposition home or self-care (01) ==
LOC: COL.ER 13:18
PROVIDERS: Emergency Medicine
DX: K92.2 Gastrointestinal hemorrhage, unspecified (principal); Z79.01 Long term (current) use of anticoagulants
CPT/HCPCS: J7030; Q9967

== ENCOUNTER → 2019-09-28 | Outpatient (CLI) | payer MEDICARE, MEDICAID ==
[~2019-09-28] MED LIST changes: +MASON NATURAL1200 MG PO
[2019-09-28 16:24] LABS: INR 2.9 (0.8-3.0); PROTHROMBIN TIME 32.3 SECONDS (9.7-12.8)
== END ==
LOC: COL.LAB 15:21
PROVIDERS: Family Medicine
DX: I82.409 Acute embolism and thrombosis of unspecified deep veins of unspecified lower extremity (principal); Z79.01 Long term (current) use of anticoagulants

== ENCOUNTER → 2019-11-28 | Outpatient (CLI) | payer MEDICARE, MEDICAID ==
[2019-11-28 12:25] LABS: ALBUMIN 4.1 gm/dL (3.5-5.0); BILIRUBIN,TOTAL 0.4 mg/dL (0.0-1.0); CALCIUM 9.2 mg/dL (8.4-10.2); CREATININE, serum 0.69 (0.52-1.25); POTASSIUM 4.5 mmol/L (3.4-5.0); TOTAL PROTEIN 7.4 gm/dL (6.4-8.2)
[2019-11-28 14:59] LABS: INR 2.4 (0.8-3.0); PROTHROMBIN TIME 27.4 SECONDS (9.7-12.8)
== END ==
LOC: COL.LAB 10:58
PROVIDERS: Family Medicine
DX: E78.5 Hyperlipidemia, unspecified (principal); I10 Essential (primary) hypertension

== ENCOUNTER 2020-01-03 18:00 | Emergency (ER) | payer MEDICARE, MEDICAID ==
[~2020-01-03] VITALS: Ht 167.6 cm; Wt 75.9 kg
[~2020-01-03 18:00] MED LIST changes: -MULTI VITAMINS1 TAB PO; +ONE-A-DAY ESSE1 EACH PO
[2020-01-03 18:48] LABS: COLLECTION METHOD CLEAN CATCH
[2020-01-03 18:51] LABS: BASO # 0.1 (0.0-0.2); BASO % 0.8 % (0.0-2.0); EOS # 0.2 (0.0-0.7); EOS % 3.2 % (0-4.0); GRAN # 4.6 (1.4-6.5); GRAN % 61.3 % (42.2-75.2); HEMATOCRIT 43.9 % (37.0-47.0); HEMOGLOBIN 13.7 g/dl (12.5-16.0); LYMPH # 2.1 (1.2-3.4); LYMPH % 28.7 % (20.0-51.0); MEAN CELL VOLUME 91 fl (80.0-100.0); MEAN CORPUSCULAR HEMOGLOBIN 28 pg (27.0-31.0); MEAN CORPUSCULAR HGB CONC 31 g/dl (33.0-37.0); MEAN PLATELET VOLUME 9.9 fl (7.4-10.4); MONO # 0.4 (0.1-0.6); MONO % 5.7 % (1.7-9.3); PLATELET COUNT 213 K/mm3 (130-400); RED BLOOD COUNT 4.83 M/mm3 (4.10-5.30); REDCELL DISTRIBUTION WIDTH-CV 14.6 % (11.5-14.5)
[2020-01-03 19:00] LABS: MUCOUS Present /lpf; PH 5 (5-8); URINE APPEARANCE Cloudy; URINE BACTERIA Rare /hpf; URINE BILIRUBIN Negative (NEGATIVE); URINE BLOOD 3+ (NEGATIVE); URINE COLOR Amber; URINE GLUCOSE Negative (NEGATIVE); URINE KETONE Negative (NEGATIVE); URINE LEUKOCYTE ESTERASE Trace (NEGATIVE); URINE NITRATE Negative (NEGATIVE); URINE PROTEIN(semi-quant) 2+ (NEGATIVE); URINE RBC >50 /hpf
[2020-01-03 19:04] LABS: ALANINE AMINOTRANSFERASE 19 U/L (4-34); ALBUMIN 4.4 gm/dL (3.5-5.0); ALKALINE PHOSPHATASE 99 U/L (50-136); ANION GAP 11 mmol/L (7-16); AST,SGOT 31 U/L (15-37); BILIRUBIN,TOTAL 0.4 mg/dL (0.0-1.0); BLOOD UREA NITROGEN 13 mg/dL (7-17); CALCIUM 9.4 mg/dL (8.4-10.2); CARBON DIOXIDE 24 mmol/L (22-30); CHLORIDE 108 mmol/L (98-107); CREATININE, serum 0.71 (0.52-1.25); GLUCOSE 201 mg/dL (74-106); LIPASE 167 U/L (23-300); SODIUM 143 mmol/L (137-145); TOTAL PROTEIN 7.6 gm/dL (6.4-8.2)
[2020-01-03 19:05] LABS: C-REACTIVE PROTEIN < 0.5 mg/dL (0.0-0.9)
[2020-01-03 21:50] LABS: INR 2.1 (0.8-3.0); PROTHROMBIN TIME 23.8 SECONDS (9.7-12.8)
[2020-01-03] MEDS ORDERED: LEVAQUIN 5500 MG/TA1 PO (21:57)
[2020-01-03] MEDS ORDERED: NORCO 325 MG-51 TAB PO (22:08)
[2020-01-03] MEDS ORDERED: ZOFRAN ODT4 MG PO (22:08)
[2020-01-03 23:03] VITALS: BP 142/64; PULSE 68; TEMP 97.8
[2020-01-04] MEDS ORDERED: LEVAQUIN 5500 MG/TA1 PO (13:46)
[2020-01-04] MEDS ORDERED: ZOFRAN 4MG T4 MG/TAB PO (13:46)
[2020-01-04] MEDS ORDERED: NORCO 325 MG-51 TAB PO (13:46)
== END 2020-01-03 23:07 | disposition home or self-care (01) ==
LOC: COL.ER 18:00
PROVIDERS: Nurse Practitioner
DX: N20.0 Calculus of kidney (principal); I25.10 Atherosclerotic heart disease of native coronary artery without angina pectoris; F32.9 Major depressive disorder, single episode, unspecified; Z86.718 Personal history of other venous thrombosis and embolism; Z87.891 Personal history of nicotine dependence; Z79.01 Long term (current) use of anticoagulants
CPT/HCPCS: J1170; J1885; J1956; J2405; J7030; Q9967

== ENCOUNTER 2020-01-04 12:45 | Day surgery (SDC) | payer MEDICARE, MEDICAID ==
[~2020-01-04] VITALS: Ht 167.6 cm; Wt 79.0 kg
[~2020-01-04 12:45] MED LIST changes: +LEVAQUIN 5500 MG/TA1 PO
[2020-01-04] MEDS ORDERED: NORCO 325 MG-51 TAB PO (13:46)
[2020-01-04] MEDS ORDERED: ZOFRAN 4MG T4 MG/TAB PO (13:46)
[2020-01-04] MEDS ORDERED: LEVAQUIN 5500 MG/TA1 PO (13:46)
[2020-01-04 13:47] VITALS: BP 162/95; PULSE 75; TEMP 97.4
--- NOTE | 2020-01-04 14:34 | NUR ---
Patient arrived to [facility] via wheelchair. She is bent over, complaining of severe flank pain. She is able to ambulate with steady gait to the bed in her room. Her daughter accompanies her. Admission forms are filled out. Patient signs her consent. Evangelist Mancuso CRNA is notified of her arrival and pain. Orders are received for LR and IV dilaudid for pain PRN. Patient receives pain medication. She is more calm, quiet, lying in bed. Further orders are received for Pepcid/Reglan IV and pre-op medications are given as ordered. Call light usage taught and within reach. Will continue to monitor.
--- NOTE | 2020-01-04 16:12 | NUR ---
Patient places her call light on. She requests to use the restroom. She is escorted to the restroom by staff, she voids 300mL clear/yellow urine and returns to room. Urine is strained and no stones noted.
[2020-01-04 18:45] VITALS: BP 136/89; PULSE 82; TEMP 98.4
[2020-01-04 19:00] VITALS: BP 136/76; PULSE 77; TEMP 98.4
[2020-01-04 19:15] VITALS: BP 134/81; PULSE 81
--- NOTE | 2020-01-04 19:15 | NUR ---
Pt. sitting up in bed at this time. Pt. is A&OX3, assessment complete. INT to lt. hand patent. Pt. has tolerated po, ambulated, and urniated. Pt. denies pain. Vitals stable. Will proceed with discharge.
[2020-01-04 19:30] VITALS: BP 139/83; PULSE 88
[2020-01-04 20:00] VITALS: BP 136/78; PULSE 81
--- NOTE | 2020-01-04 20:00 | NUR ---
Pt. given discharge instructions, health summary, home med rec. and education. Pt. verbalizes understanding. INT discontiued from lt. hand. Pt. dressed and escorted out by ITEM REPAIR MANAGER.
== END 2020-01-04 20:00 | disposition home or self-care (01) ==
LOC: SDCO 12:45 → JCC 18:40 → SDCO 20:00
DX: N20.1 Calculus of ureter (principal); K31.84 Gastroparesis; I25.5 Ischemic cardiomyopathy; I25.2 Old myocardial infarction; I10 Essential (primary) hypertension; K21.9 Gastro-esophageal reflux disease without esophagitis; F32.9 Major depressive disorder, single episode, unspecified; F41.9 Anxiety disorder, unspecified; M19.90 Unspecified osteoarthritis, unspecified site; Z86.718 Personal history of other venous thrombosis and embolism; Z90.49 Acquired absence of other specified parts of digestive tract; Z79.01 Long term (current) use of anticoagulants; Z79.899 Other long term (current) drug therapy; Z88.1 Allergy status to other antibiotic agents; Z88.5 Allergy status to narcotic agent; Z88.0 Allergy status to penicillin; Z88.2 Allergy status to sulfonamides; Z88.6 Allergy status to analgesic agent; Z88.8 Allergy status to other drugs, medicaments and biological substances; Z87.891 Personal history of nicotine dependence; Z80.3 Family history of malignant neoplasm of breast; Z95.0 Presence of cardiac pacemaker
CPT/HCPCS: OP; C1769; J0690; J1100; J1170; J1885; J2405; J2704; J2765; J3010; J7120; Q9967

== ENCOUNTER → 2020-02-13 | Outpatient (CLI) | payer MEDICARE, MEDICAID ==
[~2020-02-13] MED LIST changes: +ZOFRAN 4MG T4 MG/TAB PO
== END ==
LOC: COL.RAD 07:11
DX: R10.9 Unspecified abdominal pain (principal); R14.0 Abdominal distension (gaseous); R19.7 Diarrhea, unspecified
CPT/HCPCS: A9541

== ENCOUNTER → 2020-02-19 | Outpatient (CLI) | payer MEDICARE, MEDICAID ==
[2020-02-19 11:25] LABS: INR 1.9 (0.8-3.0)
== END ==
LOC: COL.LAB 10:40
PROVIDERS: Family Medicine
DX: I25.10 Atherosclerotic heart disease of native coronary artery without angina pectoris (principal)

== ENCOUNTER → 2020-03-21 | Outpatient (CLI) | payer MEDICARE, MEDICAID ==
[2020-03-21 10:21] LABS: INR 2.4 (0.8-3.0)
== END ==
LOC: COL.LAB
PROVIDERS: Family Medicine
DX: I25.10 Atherosclerotic heart disease of native coronary artery without angina pectoris (principal)

== ENCOUNTER → 2020-07-09 | Outpatient (CLI) | payer MEDICARE, MEDICAID ==
[2020-07-09 12:10] LABS: ALBUMIN 4.5 gm/dL (3.5-5.0); BILIRUBIN,TOTAL 0.7 mg/dL (0.0-1.0); CALCIUM 9.7 mg/dL (8.4-10.2); CHOLESTEROL RISK RATIO 5.1; CREATININE, serum 0.76 (0.52-1.25); POTASSIUM 4.1 mmol/L (3.4-5.0); TOTAL PROTEIN 7.7 gm/dL (6.4-8.2)
[2020-07-09 12:52] LABS: INR 2.6 (0.8-3.0); PROTHROMBIN TIME 29.5 SECONDS (9.7-12.8)
== END ==
LOC: COL.LAB
PROVIDERS: Family Medicine
DX: I10 Essential (primary) hypertension (principal); I25.10 Atherosclerotic heart disease of native coronary artery without angina pectoris; E78.5 Hyperlipidemia, unspecified

== ENCOUNTER → 2020-08-15 | Outpatient (CLI) | payer MEDICARE, MEDICAID ==
[2020-08-15 13:50] LABS: ANION GAP 8 mmol/L (7-16); BLOOD UREA NITROGEN 10 mg/dL (7-17); CALCIUM 8.9 mg/dL (8.4-10.2); CARBON DIOXIDE 26 mmol/L (22-30); CHLORIDE 110 mmol/L (98-107); CREATININE, serum 0.59 (0.52-1.25); GLUCOSE 115 mg/dL (74-106); SODIUM 144 mmol/L (137-145)
[2020-08-15 13:51] LABS: TROPONIN-I < 0.012 ng/mL (0.000-0.035)
== END ==
LOC: ZCOL.LAB 13:41
PROVIDERS: Internal Medicine Interventional Cardiology
DX: R42 Dizziness and giddiness (principal)

== ENCOUNTER → 2020-10-11 | Outpatient (CLI) | payer MEDICARE, MEDICAID ==
[2020-10-11 09:43] LABS: INR 2.8 (0.8-3.0); PROTHROMBIN TIME 31.2 SECONDS (9.7-12.8)
== END ==
LOC: COL.LAB 08:51
PROVIDERS: Family Medicine
DX: Z86.718 Personal history of other venous thrombosis and embolism (principal)

== ENCOUNTER → 2021-06-30 | Outpatient (CLI) | payer MEDICARE, MEDICAID ==
[2021-06-30 10:13] LABS: INR 3.4 (0.8-3.0); PROTHROMBIN TIME 38.7 SECONDS (9.7-12.8)
== END ==
LOC: COL.LAB 09:50
PROVIDERS: Family Medicine
DX: Z51.81 Encounter for therapeutic drug level monitoring (principal); I82.409 Acute embolism and thrombosis of unspecified deep veins of unspecified lower extremity

== ENCOUNTER 2021-07-15 19:20 | Emergency (ER) | payer MEDICARE, MEDICAID ==
[~2021-07-15] VITALS: Ht 167.6 cm; Wt 79.5 kg
[2021-07-15 19:28] VITALS: TEMP 99.1
[2021-07-15 19:44] LABS: HEMATOCRIT 39.5 % (37.0-47.0); HEMOGLOBIN 12.8 g/dl (12.5-16.0); MEAN CELL VOLUME 91 fl (80.0-100.0); MEAN CORPUSCULAR HEMOGLOBIN 29 pg (27-31); MEAN CORPUSCULAR HGB CONC 32 g/dl (33.0-37.0); RED BLOOD COUNT 4.36 M/mm3 (4.10-5.30)
[2021-07-15 19:45] LABS: BASO # 0.1 K/mm3 (0.0-0.2); BASO % 0.6 % (0.0-2.0); EOS # 0.2 K/mm3 (0.0-0.7); EOS % 2.7 % (0.0-4.0); GRAN # 4.7 K/mm3 (1.4-6.5); GRAN % 58.1 % (42.2-75.2); LYMPH # 2.5 K/mm3 (1.2-3.4); LYMPH % 30.8 % (20.0-51.0); MEAN PLATELET VOLUME 9.3 fl (7.4-10.4); MONO # 0.6 K/mm3 (0.1-0.6); MONO % 7.4 % (1.7-9.3); PLATELET COUNT 196 K/mm3 (130-400); REDCELL DISTRIBUTION WIDTH-CV 14.5 % (11.5-14.5)
[2021-07-15 19:52] LABS: INR 1.2 (0.8-3.0); PROTHROMBIN TIME 12.9 SECONDS (9.7-12.8)
[2021-07-15 20:06] LABS: ALANINE AMINOTRANSFERASE 18 U/L (0-55); ALBUMIN 4.1 gm/dL (3.4-4.8); ALKALINE PHOSPHATASE 85 U/L (40-150); ANION GAP 9 mmol/L (7-16); AST,SGOT 23 U/L (5-34); BILIRUBIN,TOTAL 0.3 mg/dL (0.2-1.2); BLOOD UREA NITROGEN 10 mg/dL (10-20); CALCIUM 8.9 mg/dL (8.4-10.2); CARBON DIOXIDE 23 mmol/L (23-31); CHLORIDE 110 mmol/L (98-107); CREATININE, serum 0.73 mg/dL (0.57-1.11); GLUCOSE 108 mg/dL (70-99); POTASSIUM 3.8 mmol/L (3.5-4.5); SODIUM 142 mmol/L (136-145); TOTAL PROTEIN 7.3 gm/dL (6.2-8.1)
[2021-07-15 20:31] LABS: TROPONIN-I < 0.010 ng/mL (0.00-0.033)
[2021-07-16] MEDS ORDERED: K-DUR 10 MEQ T10 MEQ PO (08:24)
[2021-07-16 14:38] VITALS: BP 118/79; PULSE 72
== END 2021-07-16 14:38 | disposition home or self-care (01) ==
LOC: COL.ER 19:20
PROVIDERS: Emergency Medicine
DX: R07.89 Other chest pain (principal); Z86.718 Personal history of other venous thrombosis and embolism; Z95.810 Presence of automatic (implantable) cardiac defibrillator; Z79.01 Long term (current) use of anticoagulants
CPT/HCPCS: 99232-AI

== ENCOUNTER → 2022-01-23 | Outpatient (CLI) | payer MEDICARE, MEDICAID ==
[~2022-01-23] MED LIST changes: +K-DUR 10 MEQ T10 MEQ PO
[2022-01-23 15:36] LABS: HEMATOCRIT 40.3 % (37.0-47.0); MEAN CELL VOLUME 92 fl (80.0-100.0); MEAN CORPUSCULAR HEMOGLOBIN 30 pg (27-31); MEAN CORPUSCULAR HGB CONC 32 g/dl (33.0-37.0); MEAN PLATELET VOLUME 9.6 fl (7.4-10.4); PLATELET COUNT 209 K/mm3 (130-400); RED BLOOD COUNT 4.39 M/mm3 (4.10-5.30); REDCELL DISTRIBUTION WIDTH-CV 15.1 % (11.5-14.5)
[2022-01-23 15:51] LABS: CALCIUM 9.7 mg/dL (8.4-10.2); CREATININE, serum 0.84 mg/dL (0.57-1.11)
[2022-01-23 15:53] LABS: INR 5.4 (0.8-3.0)
== END ==
LOC: COL.LAB 14:42
PROVIDERS: Nurse Practitioner
DX: Z01.818 Encounter for other preprocedural examination (principal); R19.7 Diarrhea, unspecified

== ENCOUNTER → 2022-01-23 | Outpatient (CLI) | payer MEDICARE, MEDICAID ==
[2022-01-23 16:03] LABS: INR 5.4 (0.8-3.0)
== END ==
LOC: COL.LAB 14:59
PROVIDERS: Family Medicine
DX: Z51.81 Encounter for therapeutic drug level monitoring (principal); I82.409 Acute embolism and thrombosis of unspecified deep veins of unspecified lower extremity

== ENCOUNTER → 2022-01-25 | Outpatient (CLI) | payer MEDICARE, MEDICAID ==
[2022-01-25 15:55] LABS: INR 1.4 (0.8-3.0); PROTHROMBIN TIME 15.9 SECONDS (9.7-12.8)
== END ==
LOC: COL.LAB 15:24
DX: Z79.01 Long term (current) use of anticoagulants (principal)